=== PATIENT | female | born 1960 | race African-American/Black ===

== ENCOUNTER 2025-05-06 15:46 | Inpatient (IN) | payer OTHER, MEDICAID ==
[~2025-05-06] VITALS: Ht 157.5 cm; Wt 145.6 kg
[2025-05-06 15:50] VITALS: O2SAT 100
[2025-05-06] MEDS ORDERED: FURO-152 PO (15:52)
[2025-05-06] MEDS: FUROSEMIDE 40MG/4ML VIAL IVP ONE (16:56)
[2025-05-06 17:10] LABS: HEMATOCRIT. 35.4 % (36.0-48.0); HEMOGLOBIN. 11.3 g/dL (12.0-16.0); MEAN PLATELET VOLUME 8.8 fl (7.4-10.4); PLATELET 213 x1000/uL (130-400); RED BLOOD CELL COUNT 4.09 mill/uL (4.2-5.4); RED CELL DISTRIBUTION WIDTH 13.8 % (11.6-14.6)
[2025-05-06 17:23] LABS: CREATININE 0.5 mg/dL (0.6-1.0); INR 1.2; UREA NITROGEN BLOOD 9 mg/dL (9-23)
[2025-05-06 17:25] LABS: ASPARTATE AMINOTRANSFERASE 21 IU/L (<34); BILIRUBIN DIRECT 0.7 mg/dL (<=3.0); TROPONIN I HIGH SENSITIVITY 22 ng/L (3.0-34)
[2025-05-06 17:26] LABS: BILIRUBIN TOTAL 1.4 mg/dL (0.1-1.0); PROTEIN TOTAL 6.1 g/dL (6.0-8.3)
[2025-05-06 17:43] LABS: EOSINOPHILS % MANUAL 1.0 % (0.0-5.0); LYMPHOCYTES % MANUAL 23.0 % (20.0-60.0); MONOCYTES % MANUAL 12.0 % (2.0-8.0); NEUTROPHILS % MANUAL 64.0 % (45.0-75.0); PLATELET ESTIMATE NORMAL
[2025-05-06 20:00] VITALS: BP 164/69; PULSE 84; RESP 18; TEMP 36.4; O2SAT 97
[2025-05-06] MEDS ORDERED: ONDANSETRON HCL 4MG/2ML INJ IV PRN (20:15)
[2025-05-06] MEDS ORDERED: MAGNESIUM/ALUMINUM HYDROXIDE/SIMETHICONE 30ML UDC PO PRN (20:15)
[2025-05-06] MEDS ORDERED: GUAIFENESIN 200MG/10ML SUGAR FREE UDC PO PRN (20:15)
[2025-05-06] MEDS ORDERED: IPRATROPIUM/ALBUTEROL 0.5-3(2.5)MG/3ML NEB HHN PRN (20:15)
[2025-05-06] MEDS ORDERED: DOCUSATE SODIUM 100MG CAPSULE PO PRN (20:15)
[2025-05-06 20:58] VITALS: BP 164/89; PULSE 84; RESP 20; TEMP 36.418
[2025-05-06] MEDS ORDERED: PNEUMOCOCCAL 20-VAL CONJ-DIP CRM 0.5ML IM ONE (21:30)
[2025-05-06] MEDS: ENOXAPARIN 40MG/0.4ML SYR SUBCUT SCH (22:27)
[2025-05-06] MEDS: CLONIDINE 0.1MG TABLET PO PRN (22:28)
[2025-05-06] MEDS: POTASSIUM CHLORIDE 20MEQ TABLET SR PO NR (22:31)
[2025-05-07] VITALS: BP 119/66; PULSE 78; RESP 20; TEMP 36.3; O2SAT 98
[2025-05-07] MEDS ORDERED: DEXTROSE 50% WATER 50ML SYRINGE IV PRN (00:15)
[2025-05-07] MEDS: CALCIUM GLUCONATE 1GM PREMIX 50 ML IV NR (01:00)
[2025-05-07 04:00] VITALS: BP 136/73; PULSE 85; RESP 18; TEMP 37; O2SAT 96
[2025-05-07 08:00] VITALS: BP 123/75; PULSE 83; RESP 17; TEMP 36.8; O2SAT 95
[2025-05-07] MEDS: FUROSEMIDE 40MG/4ML VIAL IVP SCH (08:24)
[2025-05-07] MEDS: CALCIUM GLUCONATE 1GM PREMIX 50 ML IV SCH (08:24)
[2025-05-07 11:56] LABS: HEMATOCRIT. 36.2 % (36.0-48.0); HEMOGLOBIN. 11.7 g/dL (12.0-16.0); MEAN PLATELET VOLUME 8.8 fl (7.4-10.4); PLATELET 219 x1000/uL (130-400); RED BLOOD CELL COUNT 4.24 mill/uL (4.2-5.4); RED CELL DISTRIBUTION WIDTH 14.0 % (11.6-14.6)
[2025-05-07 12:00] VITALS: BP 156/99; PULSE 88; RESP 18; TEMP 36.7; O2SAT 96
[2025-05-07 12:28] LABS: CREATININE 0.6 mg/dL (0.6-1.0)
[2025-05-07 12:29] LABS: UREA NITROGEN BLOOD 9 mg/dL (9-23)
[2025-05-07 12:30] LABS: T4 FREE 1.51 ng/dL (0.89-1.76)
[2025-05-07] MEDS: CEFTRIAXONE 1GM/50ML 50 ML IV SCH (12:30)
[2025-05-07] MEDS: FAMOTIDINE 20MG/2ML VIAL IV SCH (14:31)
[2025-05-07] MEDS: AZITHROMYCIN 500MG/250ML 250 ML IV SCH (14:31)
[2025-05-07 16:00] VITALS: BP 137/74; PULSE 84; RESP 18; TEMP 36.5; O2SAT 100
[2025-05-07] MEDS: LOSARTAN 25 MG TABLET PO SCH (18:01)
[2025-05-07 18:14] LABS: TRIGLYCERIDE 74.0 mg/dL (0-150)
[2025-05-07 18:15] LABS: LDL CHOLESTEROL 53.0 mg/dL (5-100)
[2025-05-07 18:59] LABS: INFLUENZA TYPE A Presumptive Negative (Pres. Neg.); INFLUENZA TYPE B Presumptive Negative (Pres. Neg.)
[2025-05-07 19:00] LABS: RESPIRATORY SYNCYTIAL VIRUS Not Detected (Not Detectd)
[2025-05-07 19:05] VITALS: BP 143/80; PULSE 79; RESP 18; TEMP 98.1
[2025-05-07 20:49] LABS: EOSINOPHILS % MANUAL 1.0 % (0.0-5.0); LYMPHOCYTES % MANUAL 14.0 % (20.0-60.0); MONOCYTES % MANUAL 12.0 % (2.0-8.0); NEUTROPHILS % MANUAL 73.0 % (45.0-75.0); PLATELET ESTIMATE NORMAL
[2025-05-07] MEDS ORDERED: CARVEDILOL 3.125 MG TABLET PO SCH (21:00)
== END 2025-05-07 20:00 | disposition short-term general hospital (02) | DRG 291 ==
LOC: ER 15:46 → 6WST 18:53 → EDBEDREQTM 19:00 → EDBEDREQ 19:00 → ENRESERV 19:56
PROVIDERS: ADMIT Internal Medicine; ATTEND Internal Medicine
DX: I11.0 Hypertensive heart disease with heart failure (principal); I50.41 Acute combined systolic (congestive) and diastolic (congestive) heart failure; J18.9 Pneumonia, unspecified organism; E66.01 Morbid (severe) obesity due to excess calories; J45.909 Unspecified asthma, uncomplicated; Z68.43 Body mass index [BMI] 50.0-59.9, adult; I49.3 Ventricular premature depolarization; E87.8 Other disorders of electrolyte and fluid balance, not elsewhere classified; Z87.09 Personal history of other diseases of the respiratory system
CPT/HCPCS: 36415; 71045; 80048; 80061; 80076; 83036; 83605; 83735; 83880; 84145; 84439; 84443; 84484; 85025; 87420; 87804; 93005; 96374; 99291; G0378; J0456; J0612; J0696; J1308; J1650; J1938